=== PATIENT | female | born 1965 | race Caucasian/White ===

== ENCOUNTER 2018-02-12 17:37 | Emergency (ER) | payer OTHER ==
[~2018-02-12] VITALS: Ht 154.9 cm; Wt 81.6 kg
[~2018-02-12 17:37] MED LIST: ASPIRIN EC81 MG; CIPRO500 MG; COREG CR20 MG; COZAAR50 MG; FLUCONAZOLE100 MG PO; Flagyl PO; HUMALOG100 U/ML SC; LANTUS SOLOSTAR3 ML SC; LIPITOR40 MG; RANEXA500 MG; ZANAFLEX4 MG
[2018-02-12] MEDS ORDERED: SYNTHROID50 MCG (18:02)
== END 2018-02-13 00:14 | disposition home or self-care (01) ==
LOC: ER 17:37
DX: S82.891A Other fracture of right lower leg, initial encounter for closed fracture (principal); X50.3XXA Overexertion from repetitive movements, initial encounter; Y93.89 Activity, other specified; Y92.098 Other place in other non-institutional residence as the place of occurrence of the external cause; Y99.8 Other external cause status